=== PATIENT | male | born 1955 | race Caucasian/White ===

== ENCOUNTER 2021-10-12 14:49 | Inpatient (IN) | payer MEDICARE ==
[~2021-10-12 14:49] MED LIST: Iopamidol-370 76% 500 ML 1 ML ONE
[2021-10-12] MEDS ORDERED: Fentanyl 100 MCG/2 ML VIAL ONE (15:57)
[2021-10-12] MEDS ORDERED: Ondansetron PF 4 MG/2 ML Vial ONE (15:58)
[2021-10-12 16:09] LABS: #Lymphocytes 0.7 thou/uL (1.20-3.40); #Monocytes 1.5 thou/uL (0.11-0.59); #Neutrophils 12.3 thou/uL (1.40-6.50); %Eosinophils 0.1 % (0.0-10.0); %Lymphocytes 4.5 % (21.0-51.0); %Monocytes 10.3 % (0.0-10.0); Hemoglobin 17.3 g/dL (14.0-18.0); Mean Corpuscular HGB CONC 32.1 g/dL (32.0-36.0); Mean Corpuscular Hemoglobin 31.5 pg (27.0-31.0); Mean Corpuscular Volume 98.1 fL (78.0-98.0); Mean Platelet Volume 6.8 fL (7.4-10.4); Platelet Count 222 thou/uL (130-400); RBC Distribution Width 14.7 % (11.5-14.5); Red Blood Cell (RBC) Count 5.48 mill/uL (4.70-6.10); White Blood Cell (WBC) Count 14.5 thou/uL (4.8-10.8)
[2021-10-12 16:11] LABS: ALT (SGPT) 75 U/L (8-55); AST (SGOT) 101 U/L (5-34); Albumin 3.2 g/dL (3.4-4.8); Alkaline Phosphatase 110 U/L (40-110); Anion Gap 15 mmol/L (10-20); BUN (Urea Nitrogen) 27 mg/dL (8.4-25.7); CK (CPK) 459 U/L (30-200); Calc. Creatinine Clearance 0 mL/min (70-130); Calcium 8.5 mg/dL (7.8-10.44); Carbon Dioxide 24 mmol/L (23-31); Chloride 101 mmol/L (98-107); Globulin 4.3 g/dL (2.4-3.5); Glucose 100 mg/dL (80-115); Lipase 74 U/L (8-78); Potassium 3.8 mmol/L (3.5-5.1); Protein, Total 7.5 g/dL (5.8-8.1); Sodium 136 mmol/L (136-145)
[2021-10-12] MEDS ORDERED: Magnesium 2 GM/50 ML BAG (IN WATER) ONE (16:20)
[2021-10-12 16:25] LABS: CKMB 16.6 ng/mL (0-6.6)
[2021-10-12] MEDS ORDERED: Aspirin Chewable 81 MG TAB ONE (16:26)
[2021-10-12 16:30] LABS: Acetaminophen Less than 6.0 mcg/mL (10.0-30.0); Alcohol Less than 10 mg/dL (Less than 10); Salicylate Less than 8.0 mg/dL (15.0-30.0)
[2021-10-12] MEDS ORDERED: Vancomycin 1 GM/200 ML BAG ONE (17:11)
[2021-10-12] MEDS ORDERED: Diltiazem 125 MG/25 ML ONE (17:19)
[2021-10-12 18:16] LABS: Amphetamine Detected (NotDetected); Barbiturates Screen Not Detected (NotDetected); Benzodiazepine Screen Not Detected (NotDetected); Cocaine Metabolite Screen Not Detected (NotDetected); Methadone Not Detected (NotDetected); Methamphetamine Detected (NotDetected); Opiate Screen Not Detected (NotDetected); Oxycodone Screen Not Detected (NotDetected); Phencyclidine (PCP) Not Detected (NotDetected); THC/Cannabinoid Screen Not Detected (NotDetected); Tricyclic Screen Not Detected (NotDetected)
[2021-10-12 18:32] LABS: Bacteria/HPF None Seen HPF (None Seen); Bilirubin Negative (Negative); Blood, Urine Trace (Negative); Clarity Clear (Clear); Glucose, Urine (Dipstick) Normal (Negative); Ketone, Urine Negative (Negative); Leukocyte Negative Leu/uL (Negative); Nitrite Negative (Negative); Protein, Urine (Dipstick) 30 mg/dL (Neg-Trace); RBC/HPF 0-3 HPF (0-3); Specific Gravity, Urine 1.022 (1.002-1.036); Squamous Epithelial None Seen HPF (0-3); Urobilinogen Normal mg/dL (Less than 2); WBC/HPF 0-3 HPF (0-3); pH, Urine 5.5 (5.0-9.0)
[2021-10-12] MEDS ORDERED: Ondansetron PF 4 MG/2 ML Vial IVP PRN (18:57)
[2021-10-12] MEDS ORDERED: Acetaminophen 325 MG TAB PO PRN (18:57)
[2021-10-12] MEDS ORDERED: Ondansetron ODT 4 MG TAB PO PRN (18:57)
[2021-10-12 19:03] LABS: Lactic Acid 2.4 mmol/L (0.5-2.2)
[2021-10-12 19:12] LABS: Troponin I 0.231 ng/mL (< 0.028)
[2021-10-12 19:26] LABS: SARS-CoV-2 NAA Rapid Test Not Detected (NotDetected)
[2021-10-12 19:36] VITALS: BMI 24.6
[2021-10-12] MEDS: Aspirin 325 mg Enteric Coated Tablet PO SCH (19:36)
[2021-10-12] MEDS: Cefepime 2 GM in Sodium Chloride 0.9% 100 ML IVPB SCH (19:59)
[2021-10-12] MEDS ORDERED: Vancomycin HCl 500 MG in Sodium Chloride 0.9% 100 ML IVPB SCH (20:30)
[2021-10-12 22:35] LABS: Troponin I 0.187 ng/mL (< 0.028)
[2021-10-13 04:06] LABS: #Eosinphils 0.1 thou/uL (0.0-0.7); #Lymphocytes 0.7 thou/uL (1.20-3.40); #Monocytes 1.3 thou/uL (0.11-0.59); #Neutrophils 8.9 thou/uL (1.40-6.50); %Basophils 0.2 % (0.0-1.0); %Eosinophils 0.6 % (0.0-10.0); %Lymphocytes 6.3 % (21.0-51.0); %Monocytes 11.5 % (0.0-10.0); %Neutrophils 81.3 % (42.0-75.0); Hemoglobin 14.2 g/dL (14.0-18.0); Mean Corpuscular HGB CONC 31.4 g/dL (32.0-36.0); Mean Corpuscular Hemoglobin 30.6 pg (27.0-31.0); Mean Corpuscular Volume 97.6 fL (78.0-98.0); Mean Platelet Volume 6.7 fL (7.4-10.4); Platelet Count 208 thou/uL (130-400); RBC Distribution Width 14.5 % (11.5-14.5); Red Blood Cell (RBC) Count 4.63 mill/uL (4.70-6.10); White Blood Cell (WBC) Count 10.9 thou/uL (4.8-10.8)
[2021-10-13 04:17] LABS: Anion Gap 13 mmol/L (10-20); BUN (Urea Nitrogen) 20 mg/dL (8.4-25.7); Calc. Creatinine Clearance 77 mL/min (70-130); Calcium 8.1 mg/dL (7.8-10.44); Carbon Dioxide 25 mmol/L (23-31); Chloride 103 mmol/L (98-107); Glucose 147 mg/dL (80-115); Potassium 3.7 mmol/L (3.5-5.1); Sodium 137 mmol/L (136-145)
[2021-10-13] MEDS ORDERED: Vancomycin 1 GM in Premix Bag 1 BAG IVPB SCH (05:00)
[2021-10-13] MEDS: HYDROcodone/Acetaminophen 5/325 mg Tablet PO PRN ×3 (06:39→23:57)
[2021-10-13] MEDS ORDERED: Enoxaparin Sodium 40 MG/0.4 ML SYRINGE SC SCH (09:00)
[2021-10-13] MEDS ORDERED: FLU VACC QS2021-22(65YR UP)/PF 240 MCG/0.7 ML SYRINGE IM ONE (09:00)
[2021-10-13] MEDS: Saccharomyces boulardii 250 MG CAP PO SCH (10:28)
[2021-10-13] MEDS: Aspirin 325 mg Enteric Coated Tablet PO SCH (10:29)
[2021-10-13] MEDS: Cefepime 2 GM in Sodium Chloride 0.9% 100 ML IVPB SCH (10:29)
[2021-10-13] MEDS ORDERED: Vancomycin 1.5 GRAM/300 ML BAG 1.5 GM in Premix Bag 1 BAG IVPB SCH (17:00)
[2021-10-13] MEDS ORDERED: Magnesium 2 GM/50 ML 2 GM in Premix Bag 1 BAG IVPB SCH (17:00)
[2021-10-13] MEDS: Azithromycin 500 MG in Sodium Chloride 0.9% 250 ML 250 ML IVPB SCH (17:18)
[2021-10-13] MEDS: cefTRIAXone\\ROCEPHIN 2 GM in Sodium Chloride 0.9% 100 ML IVPB SCH (17:18)
[2021-10-13 19:11] LABS: Legionella Urinary Ag Negative (Negative); Strep pneumo Urine Ag NEGATIVE (NEGATIVE)
[2021-10-13] MEDS: Amiodarone 450 MG, Admixture Fee 1 EACH in Dextrose 5% in Water 250 ML IVPB SCH (19:48)
[2021-10-13] MEDS: Enoxaparin Sodium 80 MG/0.8 ML SYRINGE SC SCH (21:48)
[2021-10-13] MEDS: Ammonium Lactate 12% Lotion 225 GM BOT TOP SCH (22:08)
[2021-10-14] MEDS: Amiodarone 450 MG, Admixture Fee 1 EACH in Dextrose 5% in Water 250 ML IVPB SCH ×2 (03:15→20:56)
[2021-10-14] MEDS: HYDROcodone/Acetaminophen 5/325 mg Tablet PO PRN ×2 (05:36→17:39)
[2021-10-14 05:53] LABS: #Eosinphils 0.1 thou/uL (0.0-0.7); #Lymphocytes 1.2 thou/uL (1.20-3.40); #Monocytes 1.3 thou/uL (0.11-0.59); #Neutrophils 8.4 thou/uL (1.40-6.50); %Basophils 0.1 % (0.0-1.0); %Eosinophils 0.8 % (0.0-10.0); %Lymphocytes 10.5 % (21.0-51.0); %Monocytes 11.5 % (0.0-10.0); %Neutrophils 77.1 % (42.0-75.0); Hemoglobin 16.1 g/dL (14.0-18.0); Mean Corpuscular HGB CONC 30.3 g/dL (32.0-36.0); Mean Corpuscular Hemoglobin 30.4 pg (27.0-31.0); Mean Platelet Volume 6.6 fL (7.4-10.4); Platelet Count 240 thou/uL (130-400); RBC Distribution Width 14.6 % (11.5-14.5); Red Blood Cell (RBC) Count 5.28 mill/uL (4.70-6.10); White Blood Cell (WBC) Count 10.9 thou/uL (4.8-10.8)
[2021-10-14 06:33] LABS: ALT (SGPT) 73 U/L (8-55); AST (SGOT) 84 U/L (5-34); Alkaline Phosphatase 104 U/L (40-110); Anion Gap 12 mmol/L (10-20); BUN (Urea Nitrogen) 26 mg/dL (8.4-25.7); Bilirubin, Total 1.3 mg/dL (0.2-1.2); Calc. Creatinine Clearance 49 mL/min (70-130); Calcium 8.7 mg/dL (7.8-10.44); Carbon Dioxide 26 mmol/L (23-31); Chloride 101 mmol/L (98-107); Glucose 116 mg/dL (80-115); Magnesium 2.3 mg/dL (1.6-2.6); Potassium 5.4 mmol/L (3.5-5.1); Sodium 134 mmol/L (136-145)
[2021-10-14] MEDS: Aspirin 325 mg Enteric Coated Tablet PO SCH (09:57)
[2021-10-14] MEDS: Enoxaparin Sodium 80 MG/0.8 ML SYRINGE SC SCH ×3 (09:58→20:57)
[2021-10-14] MEDS: Saccharomyces boulardii 250 MG CAP PO SCH (09:58)
[2021-10-14] MEDS: Ammonium Lactate 12% Lotion 225 GM BOT TOP SCH ×2 (09:59→20:57)
[2021-10-14] MEDS ORDERED: predniSONE 20 MG TAB PO SCH (10:15)
[2021-10-14 12:11] LABS: Anion Gap 15 mmol/L (10-20); BUN (Urea Nitrogen) 30 mg/dL (8.4-25.7); Calc. Creatinine Clearance 50 mL/min (70-130); Carbon Dioxide 24 mmol/L (23-31); Chloride 101 mmol/L (98-107); Glucose 102 mg/dL (80-115); Potassium 5.5 mmol/L (3.5-5.1); Sodium 134 mmol/L (136-145)
[2021-10-14] MEDS: Azithromycin 500 MG in Sodium Chloride 0.9% 250 ML 250 ML IVPB SCH (17:36)
[2021-10-14] MEDS: cefTRIAXone\\ROCEPHIN 2 GM in Sodium Chloride 0.9% 100 ML IVPB SCH (17:36)
[2021-10-14] MEDS: Mometasone 100 MCG/Formoterol 5 MCG 120 PUFF INHALER INH SCH (19:06)
[2021-10-14 19:22] LABS: Anion Gap 18 mmol/L (10-20); BUN (Urea Nitrogen) 33 mg/dL (8.4-25.7); Calc. Creatinine Clearance 49 mL/min (70-130); Carbon Dioxide 20 mmol/L (23-31); Chloride 99 mmol/L (98-107); Glucose 91 mg/dL (80-115); Potassium 5.6 mmol/L (3.5-5.1); Sodium 131 mmol/L (136-145)
[2021-10-14] MEDS ORDERED: LOKELMA 10 GM PACKET PO ONE (20:35)
[2021-10-14] MEDS: Albumin 25% 25 GM/100 ML BOT IVPB SCH (20:52)
[2021-10-14] MEDS: Melatonin 3 MG TAB PO PRN (21:31)
[2021-10-15] MEDS: Albumin 25% 25 GM/100 ML BOT IVPB SCH (02:50)
[2021-10-15 07:13] LABS: Hemoglobin 16.2 g/dL (14.0-18.0); Mean Corpuscular HGB CONC 29.9 g/dL (32.0-36.0); Mean Platelet Volume 7.2 fL (7.4-10.4); Platelet Count 231 thou/uL (130-400); RBC Distribution Width 14.7 % (11.5-14.5)
[2021-10-15] MEDS: Mometasone 100 MCG/Formoterol 5 MCG 120 PUFF INHALER INH SCH ×2 (07:24→18:20)
[2021-10-15 07:34] LABS: Phosphorus 5.3 mg/dL (2.3-4.7)
[2021-10-15 07:35] LABS: ALT (SGPT) 289 U/L (8-55); AST (SGOT) 437 U/L (5-34); Albumin 3.5 g/dL (3.4-4.8); Alkaline Phosphatase 92 U/L (40-110); Anion Gap 22 mmol/L (10-20); BUN (Urea Nitrogen) 38 mg/dL (8.4-25.7); Bilirubin, Total 2.2 mg/dL (0.2-1.2); Calc. Creatinine Clearance 44 mL/min (70-130); Calcium 9.3 mg/dL (7.8-10.44); Carbon Dioxide 18 mmol/L (23-31); Chloride 100 mmol/L (98-107); Globulin 3.7 g/dL (2.4-3.5); Glucose 87 mg/dL (80-115); Magnesium 2.7 mg/dL (1.6-2.6); Potassium 5.1 mmol/L (3.5-5.1); Protein, Total 7.2 g/dL (5.8-8.1); Sodium 135 mmol/L (136-145)
[2021-10-15] MEDS: Saccharomyces boulardii 250 MG CAP PO SCH (08:06)
[2021-10-15] MEDS: predniSONE 20 MG TAB PO SCH (08:06)
[2021-10-15] MEDS: Aspirin 325 mg Enteric Coated Tablet PO SCH (08:06)
[2021-10-15] MEDS: Ammonium Lactate 12% Lotion 225 GM BOT TOP SCH ×2 (08:07→20:13)
[2021-10-15 08:09] LABS: Band 1 % (5-11); Lymphocytes 9 % (21-51); MDiff Complete? YES; Monocytes 14 % (0-10); Neutrophil 76 % (42-75); Platelet Morphology Comment Appears Adequate; Polychromasia SLIGHT = 2-3 cells (100X) (0-2/hpf)
[2021-10-15] MEDS: Enoxaparin Sodium 80 MG/0.8 ML SYRINGE SC SCH ×3 (08:23→20:12)
[2021-10-15] MEDS ORDERED: Albumin 25% 25 GM/100 ML BOT IVPB SCH (08:30)
[2021-10-15] MEDS ORDERED: Senokot S 8.6-50 MG TAB PO SCH (09:00)
[2021-10-15] MEDS: Amiodarone 450 MG, Admixture Fee 1 EACH in Dextrose 5% in Water 250 ML IVPB SCH (11:41)
[2021-10-15] MEDS: cefTRIAXone\\ROCEPHIN 2 GM in Sodium Chloride 0.9% 100 ML IVPB SCH (16:47)
[2021-10-15] MEDS: Amiodarone 200 MG TAB PO SCH (20:11)
[2021-10-15] MEDS: Famotidine/PF 20 mg/2ml Vial SLOW IVP SCH (20:12)
[2021-10-15] MEDS: guaiFENesin ER 600 MG TAB PO SCH (20:12)
[2021-10-16 03:50] LABS: #Lymphocytes 0.8 thou/uL (1.20-3.40); #Neutrophils 12.2 thou/uL (1.40-6.50); %Eosinophils 0.1 % (0.0-10.0); %Lymphocytes 5.1 % (21.0-51.0); %Monocytes 13.2 % (0.0-10.0); %Neutrophils 81.5 % (42.0-75.0); Mean Corpuscular HGB CONC 31.3 g/dL (32.0-36.0); Mean Corpuscular Volume 98.8 fL (78.0-98.0); Mean Platelet Volume 7.2 fL (7.4-10.4); Platelet Count 236 thou/uL (130-400); RBC Distribution Width 14.6 % (11.5-14.5); Red Blood Cell (RBC) Count 4.86 mill/uL (4.70-6.10); White Blood Cell (WBC) Count 14.9 thou/uL (4.8-10.8)
[2021-10-16 04:08] LABS: ALT (SGPT) 355 U/L (8-55); AST (SGOT) 415 U/L (5-34); Albumin 2.7 g/dL (3.4-4.8); Alkaline Phosphatase 91 U/L (40-110); Anion Gap 17 mmol/L (10-20); BUN (Urea Nitrogen) 36 mg/dL (8.4-25.7); Bilirubin, Total 1.3 mg/dL (0.2-1.2); Calc. Creatinine Clearance 57 mL/min (70-130); Calcium 8.3 mg/dL (7.8-10.44); Carbon Dioxide 21 mmol/L (23-31); Chloride 100 mmol/L (98-107); Globulin 3.5 g/dL (2.4-3.5); Glucose 111 mg/dL (80-115); Magnesium 1.9 mg/dL (1.6-2.6); Potassium 4.8 mmol/L (3.5-5.1); Protein, Total 6.2 g/dL (5.8-8.1); Sodium 133 mmol/L (136-145)
[2021-10-16] MEDS: Mometasone 100 MCG/Formoterol 5 MCG 120 PUFF INHALER INH SCH ×2 (07:28→18:31)
[2021-10-16] MEDS ORDERED: Magnesium 2 GM/50 ML 2 GM in Premix Bag 1 BAG IVPB SCH (08:45)
[2021-10-16] MEDS: Aspirin 325 mg Enteric Coated Tablet PO SCH ×2 (09:12→09:26)
[2021-10-16] MEDS: predniSONE 20 MG TAB PO SCH (09:12)
[2021-10-16] MEDS: Saccharomyces boulardii 250 MG CAP PO SCH (09:12)
[2021-10-16] MEDS: guaiFENesin ER 600 MG TAB PO SCH ×2 (09:13→20:09)
[2021-10-16] MEDS: Amiodarone 200 MG TAB PO SCH ×2 (09:13→20:09)
[2021-10-16] MEDS: Famotidine/PF 20 mg/2ml Vial SLOW IVP SCH ×2 (09:13→20:09)
[2021-10-16] MEDS: Ammonium Lactate 12% Lotion 225 GM BOT TOP SCH ×2 (09:14→20:09)
[2021-10-16] MEDS: HYDROcodone/Acetaminophen 5/325 mg Tablet PO PRN ×2 (09:22→17:10)
[2021-10-16] MEDS ORDERED: Aspirin 325 mg Enteric Coated Tablet PO SCH ×2 (09:29→09:45)
[2021-10-16] MEDS ORDERED: Aspirin 81 mg Enteric Coated Tablet ONE (09:29)
[2021-10-16] MEDS: Enoxaparin Sodium 80 MG/0.8 ML SYRINGE SC SCH (11:00)
[2021-10-16] MEDS: cefTRIAXone\\ROCEPHIN 2 GM in Sodium Chloride 0.9% 100 ML IVPB SCH (14:43)
[2021-10-16] MEDS: Benzonatate 100 MG CAP PO SCH ×2 (14:43→20:09)
[2021-10-17 03:51] LABS: #Lymphocytes 0.8 thou/uL (1.20-3.40); #Monocytes 1.5 thou/uL (0.11-0.59); #Neutrophils 10.1 thou/uL (1.40-6.50); %Basophils 0.1 % (0.0-1.0); %Eosinophils 0.1 % (0.0-10.0); %Lymphocytes 6.3 % (21.0-51.0); %Monocytes 12.3 % (0.0-10.0); %Neutrophils 81.2 % (42.0-75.0); Hemoglobin 14.9 g/dL (14.0-18.0); Mean Corpuscular HGB CONC 30.7 g/dL (32.0-36.0); Mean Corpuscular Hemoglobin 30.1 pg (27.0-31.0); Mean Platelet Volume 6.9 fL (7.4-10.4); Platelet Count 271 thou/uL (130-400); RBC Distribution Width 14.6 % (11.5-14.5); Red Blood Cell (RBC) Count 4.94 mill/uL (4.70-6.10); White Blood Cell (WBC) Count 12.4 thou/uL (4.8-10.8)
[2021-10-17 04:11] LABS: ALT (SGPT) 340 U/L (8-55); AST (SGOT) 296 U/L (5-34); Albumin 3.1 g/dL (3.4-4.8); Alkaline Phosphatase 110 U/L (40-110); Anion Gap 12 mmol/L (10-20); BUN (Urea Nitrogen) 27 mg/dL (8.4-25.7); Calc. Creatinine Clearance 65 mL/min (70-130); Calcium 8.5 mg/dL (7.8-10.44); Carbon Dioxide 25 mmol/L (23-31); Chloride 101 mmol/L (98-107); Globulin 3.6 g/dL (2.4-3.5); Glucose 134 mg/dL (80-115); Potassium 4.2 mmol/L (3.5-5.1); Protein, Total 6.7 g/dL (5.8-8.1); Sodium 134 mmol/L (136-145)
[2021-10-17] MEDS: Mometasone 100 MCG/Formoterol 5 MCG 120 PUFF INHALER INH SCH ×2 (06:58→19:20)
[2021-10-17] MEDS: Amiodarone 200 MG TAB PO SCH ×2 (10:01→21:13)
[2021-10-17] MEDS: Saccharomyces boulardii 250 MG CAP PO SCH (10:01)
[2021-10-17] MEDS: Aspirin 325 mg Enteric Coated Tablet PO SCH ×2 (10:01→10:02)
[2021-10-17] MEDS: predniSONE 20 MG TAB PO SCH (10:02)
[2021-10-17] MEDS: Benzonatate 100 MG CAP PO SCH ×3 (10:02→21:13)
[2021-10-17] MEDS: guaiFENesin ER 600 MG TAB PO SCH ×2 (10:02→21:15)
[2021-10-17] MEDS: Famotidine/PF 20 mg/2ml Vial SLOW IVP SCH ×2 (10:02→21:13)
[2021-10-17] MEDS: Ammonium Lactate 12% Lotion 225 GM BOT TOP SCH ×2 (10:03→21:15)
[2021-10-17] MEDS: HYDROcodone/Acetaminophen 5/325 mg Tablet PO PRN ×2 (13:39→21:13)
[2021-10-17] MEDS: cefTRIAXone\\ROCEPHIN 2 GM in Sodium Chloride 0.9% 100 ML IVPB SCH (16:46)
[2021-10-17] MEDS: Melatonin 3 MG TAB PO PRN (21:13)
[2021-10-17] MEDS ORDERED: Lorazepam 0.5 MG TAB PO PRN (23:22)
[2021-10-17] MEDS ORDERED: traZODone HCl 50 MG TAB PO PRN (23:23)
[2021-10-18] MEDS ORDERED: hydrALAZINE 20 MG/ML VIAL SLOW IVP PRN (04:57)
[2021-10-18 05:00] LABS: #Monocytes 1.4 thou/uL (0.11-0.59); #Neutrophils 9.5 thou/uL (1.40-6.50); %Basophils 0.1 % (0.0-1.0); %Lymphocytes 8.7 % (21.0-51.0); %Monocytes 11.8 % (0.0-10.0); %Neutrophils 79.4 % (42.0-75.0); Hemoglobin 16.1 g/dL (14.0-18.0); Mean Corpuscular HGB CONC 30.7 g/dL (32.0-36.0); Mean Corpuscular Hemoglobin 30.3 pg (27.0-31.0); Mean Corpuscular Volume 98.7 fL (78.0-98.0); Mean Platelet Volume 6.8 fL (7.4-10.4); Platelet Count 289 thou/uL (130-400); RBC Distribution Width 14.8 % (11.5-14.5); Red Blood Cell (RBC) Count 5.31 mill/uL (4.70-6.10)
[2021-10-18 05:21] LABS: ALT (SGPT) 412 U/L (8-55); AST (SGOT) 356 U/L (5-34); Albumin 3.2 g/dL (3.4-4.8); Alkaline Phosphatase 112 U/L (40-110); Anion Gap 13 mmol/L (10-20); BUN (Urea Nitrogen) 30 mg/dL (8.4-25.7); Calc. Creatinine Clearance 63 mL/min (70-130); Calcium 8.7 mg/dL (7.8-10.44); Carbon Dioxide 25 mmol/L (23-31); Chloride 102 mmol/L (98-107); Globulin 4.1 g/dL (2.4-3.5); Glucose 112 mg/dL (80-115); Magnesium 2.1 mg/dL (1.6-2.6); Phosphorus 2.7 mg/dL (2.3-4.7); Potassium 4.8 mmol/L (3.5-5.1); Protein, Total 7.3 g/dL (5.8-8.1); Sodium 135 mmol/L (136-145)
[2021-10-18] MEDS: HYDROcodone/Acetaminophen 5/325 mg Tablet PO PRN (05:21)
[2021-10-18] MEDS: Mometasone 100 MCG/Formoterol 5 MCG 120 PUFF INHALER INH SCH (07:01)
[2021-10-18 07:59] VITALS: BP 152/101; TEMP 97.4
[2021-10-18] MEDS ORDERED: Aspirin 81 mg Enteric Coated Tablet PO SCH (09:00)
[2021-10-18] MEDS: guaiFENesin ER 600 MG TAB PO SCH (09:30)
[2021-10-18] MEDS: predniSONE 20 MG TAB PO SCH (09:30)
[2021-10-18] MEDS: Amiodarone 200 MG TAB PO SCH (09:30)
[2021-10-18] MEDS: Saccharomyces boulardii 250 MG CAP PO SCH (09:30)
[2021-10-18] MEDS: Benzonatate 100 MG CAP PO SCH (09:30)
[2021-10-18] MEDS: Famotidine/PF 20 mg/2ml Vial SLOW IVP SCH (09:30)
[2021-10-18] MEDS: Ammonium Lactate 12% Lotion 225 GM BOT TOP SCH (09:42)
[2021-10-18] MEDS: Aspirin 325 mg Enteric Coated Tablet PO SCH (10:42)
[2021-10-19] MEDS ORDERED: Amiodarone 200 MG TAB PO SCH (09:00)
== END 2021-10-18 11:57 | disposition hospice, home (50) | DRG 871 ==
LOC: ERS 14:49 → IMCU/EMU 18:48 → 2NO 10-17 15:13
PROVIDERS: ADMIT Internal Medicine; ATTEND Internal Medicine
PROC: 3E03329 Introduction of Other Anti-infective into Peripheral Vein, Percutaneous Approach (ICD-10-PCS; principal; 2021-10-12)
PROC: 30233J1 Transfusion of Nonautologous Serum Albumin into Peripheral Vein, Percutaneous Approach (ICD-10-PCS; 2021-10-14)
DX: A41.9 Sepsis, unspecified organism (principal); J96.01 Acute respiratory failure with hypoxia; I50.43 Acute on chronic combined systolic (congestive) and diastolic (congestive) heart failure; J69.0 Pneumonitis due to inhalation of food and vomit; I21.A1 Myocardial infarction type 2; I47.1 Supraventricular tachycardia; I42.8 Other cardiomyopathies; E44.0 Moderate protein-calorie malnutrition; N17.9 Acute kidney failure, unspecified; R04.2 Hemoptysis; E87.2 Acidosis; E87.1 Hypo-osmolality and hyponatremia; Z51.5 Encounter for palliative care; I73.9 Peripheral vascular disease, unspecified; F15.10 Other stimulant abuse, uncomplicated; I48.0 Paroxysmal atrial fibrillation; I25.10 Atherosclerotic heart disease of native coronary artery without angina pectoris; R65.20 Severe sepsis without septic shock; F32.A Depression, unspecified; E87.5 Hyperkalemia; I51.3 Intracardiac thrombosis, not elsewhere classified; R94.5 Abnormal results of liver function studies; R13.10 Dysphagia, unspecified; L98.499 Non-pressure chronic ulcer of skin of other sites with unspecified severity; E83.42 Hypomagnesemia; K57.30 Diverticulosis of large intestine without perforation or abscess without bleeding; Z20.822 Contact with and (suspected) exposure to COVID-19; Z90.49 Acquired absence of other specified parts of digestive tract; Z98.890 Other specified postprocedural states; Z88.0 Allergy status to penicillin; Z87.891 Personal history of nicotine dependence; Z91.14 Patient's other noncompliance with medication regimen
CPT/HCPCS: 0240U; 36415; 71045; 71275; 74177; 76705; 80048; 80053; 80306; 80307; 81003; 81015; 82550; 82553; 83605; 83690; 83735; 83880; 84100; 84145; 84443; 84484; 85025; 85379; 85652; 86140; 87040; 87070; 87205; 87449; 87899; 93005; 93010; 93306; 93923; 94640; 96365; 96375; 96376; J0282; J0456; J0692; J0696; J1650; J1956; J2405; J3010; J3370; J3475; J3490; J7050; J7070; J7512; J7620; P9047; Q9967; S0028

== ENCOUNTER 2021-10-19 19:40 | Emergency (ER) | payer MEDICARE | END 2021-10-19 22:15 | disposition home or self-care (01) | LOC: ERS 19:40 | DX: I50.9 Heart failure, unspecified (principal); J44.9 Chronic obstructive pulmonary disease, unspecified; Z87.891 Personal history of nicotine dependence; N18.9 Chronic kidney disease, unspecified | CPT/HCPCS: J7620 ==